=== PATIENT | male | born 2005 | race Caucasian/White ===

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

== ENCOUNTER → 2025-01-07 | Outpatient (REF) | payer BC ==
[2025-01-07 18:58] LABS: C REACTIVE PROTEIN QUANTITATIV < 0.50 MG/DL (<1.0)
[2025-01-07 19:01] LABS: VITAMIN B12 LEVEL 530 PG/ML (211-911)
[2025-01-07 19:25] LABS: HIV 1&2 SCREEN NEGATIVE (NEGATIVE)
[2025-01-07 19:33] LABS: HEPATITIS C VIRUS ABY INDEX 0.06 INDEX (<0.8)
== END ==
LOC: M LAB REF 16:33
PROVIDERS: ATTEND Physician Assistant
DX: R07.89 Other chest pain (principal); Z11.9 Encounter for screening for infectious and parasitic diseases, unspecified; R00.2 Palpitations